=== PATIENT | female | born 1990 | race African-American/Black ===

== ENCOUNTER 2022-07-07 12:18 | Emergency (ER) | payer OTHER ==
[2022-07-07] MEDS ORDERED: KETOROLAC TROMETHAMINE 30 MG/1 ML VIAL IM ONE (12:36)
[2022-07-07 12:41] VITALS: BP 129/91; RESP 18; TEMP 98.9; BMI 20.6
[2022-07-07] MEDS ORDERED: KETOROLAC TROMETHAMINE 30 MG/1 ML VIAL ONE (12:44)
[2022-07-07 13:32] VITALS: PULSE 92
== END 2022-07-07 13:39 | disposition home or self-care (01) ==
LOC: FER 12:18
PROC: 3E023GC Introduction of Other Therapeutic Substance into Muscle, Percutaneous Approach (ICD-10-PCS; principal; 2022-07-07)
DX: M67.441 Ganglion, right hand (principal); M67.442 Ganglion, left hand
CPT/HCPCS: 73090-TC-RT-FY; 73110-TC-RT-FY; 73130-TC-RT-FY; 99284-25